=== PATIENT | female | born 1990 | race Caucasian/White ===

== ENCOUNTER 2024-09-12 17:11 | Emergency (ER) | payer BC ==
--- NOTE | 2024-09-12 17:58 | ED ---
Fall HPI - General Chief Complaint: Fall Stated Complaint: left arm injury, fall Time Seen by Provider: 09/12/24 17:55 Source: patient, RN notes reviewed Mode of arrival: ambulatory - History of Present Illness Initial Comments: 34-year-old female presents emergency department for complaint of a fall. States that she was walking outside carrying her son when she slipped on mud falling onto her left arm. She denies hitting her head or loss conscious at the time of the fall. Is complaining of pain to the left elbow and forearm. Denies paresthesias or loss of range of motion. denies taking medication since the time of the fall. - Related Data Allergies Allergy/AdvReac Type Severity Reaction Status Date / Time aspirin Allergy Rash/Hives Verified 09/12/24 17:16 clindamycin Allergy Rash/Hives Verified 09/12/24 17:16 Penicillins Allergy Rash/Hives Verified 09/12/24 17:16 Sulfa (Sulfonamide AdvReac Rash/Hives Verified 09/12/24 17:16 Antibiotics) Review of Systems ROS Statement: Those systems with pertinent positive or pertinent negative responses have been documented in the HPI. ROS Other: All systems not noted in ROS Statement are negative. Past Medical History Past Medical History: Asthma, GERD/Reflux Past Surgical History: Section, Cholecystectomy Past Psychological History: No Psychological Hx Reported Smoking Status: Never smoker Past Alcohol Use History: None Reported Past Drug Use History: None Reported General Exam Limitations: no limitations General appearance: alert, in no apparent distress ENT exam: Present: normal exam, mucous membranes moist Respiratory exam: Present: normal lung sounds bilaterally. Absent: respiratory distress, wheezes, rales, rhonchi, stridor Cardiovascular Exam: Present: regular rate, normal rhythm, normal heart sounds. Absent: systolic murmur, diastolic murmur, rubs, gallop, clicks GI/Abdominal exam: Present: soft, normal bowel sounds. Absent: distended, tenderness, guarding, rebound, rigid Left Elbow exam: Present: tenderness. Absent: swelling, ecchymosis, deformity Forearm Wrist exam: Present: full ROM, tenderness. Absent: swelling, ecchymosis, deformity Hand Wrist exam: Present: normal inspection Neuro motor exam: Present: wrist extension intact, thumb opposition intact Vascular: Present: normal capillary refill, radial pulse (2+). Absent: vascular compromise Back exam: Present: normal inspection Skin exam: Present: warm, dry, intact, normal color. Absent: rash Course Vital Signs 09/12/24 09/12/24 17:13 18:56 Temperature 98.5 F 98.2 F Pulse Rate 74 70 Respiratory 20 18 Rate Blood Pressure 103/68 102/60 O2 Sat by Pulse 99 99 Oximetry Medical Decision Making - Medical Decision Making Was pt. sent in by a medical professional or institution (, [facility], [facility], urgent care, hospital, or penitentiary...) When possible be specific @ -No Did you speak to anyone other than the patient for history (EMS, parent, family, police, friend...)? What history was obtained from this source @ -No Did you review nursing and triage notes (agree or disagree)? Why? @ -I reviewed and agree with nursing and triage notes Were old charts reviewed (outside hosp., previous admission, EMS record, old EKG, old radiological studies, urgent care reports/EKG's, penitentiary records)? Report findings @ -No old charts were reviewed Differential Diagnosis (chest pain, altered mental status, abdominal pain women, abdominal pain men, vaginal bleeding, weakness, fever, dyspnea, syncope, headache, dizziness, GI bleed, back pain, seizure, CVA, palpatations, mental health, musculoskeletal)? @ -Differential Musculoskeletal Muscular strain, contusion, ligament sprain, fracture, arthritis, septic arthritis, bursitis, cellulitis, muscle spasm, nerve compression, DVT, arterial occlusion, herpes zoster, electrolyte abnormality, tumor.... This is not meant to be in all inclusive list EKG interpreted by me (3pts min.). @ -none X-rays interpreted by me (1pt min.). @ -X-ray of the left wrist, forearm, elbow no evidence of acute fracture CT interpreted by me (1pt min.). @ -None done U/S interpreted by me (1pt. min.). @ -None done What testing was considered but not performed or refused? (CT, X-rays, U/S, labs)? Why? @ -None What meds were considered but not given or refused? Why? @ -None Did you discuss the management of the patient with other professionals (professionals i.e. , [facility], [facility], lab, RT, psych nurse, social work professor, wireless communications engineer, teacher, fire information officer, upper caser)? Give summary @ -No Was smoking cessation discussed for >3mins.? @ -No Was critical care preformed (if so, how long)? @ -No Were there social determinants of health that impacted care today? How? (Homelessness, low income, unemployed, alcoholism, drug addiction, transportation, low edu. Level, literacy, decrease access to med. care, snf, rehab)? @ -No Was there de-escalation of care discussed even if they declined (Discuss DNR or withdrawal of care, Hospice)? DNR status @ -No What co-morbidities impacted this encounter? (DM, HTN, Smoking, COPD, CAD, Cancer, CVA, ARF, Chemo, Hep., AIDS, mental health diagnosis, sleep apnea, morbid obesity)? @ -None Was patient admitted / discharged? Hospital course, mention meds given and route, prescriptions, significant lab abnormalities, going to OR and other pertinent info. @ -Discharge. 34 year old female presenting to the emergency department after a fall. Complaining of pain to the left arm no evidence of obvious deformity and is neurovascularly intact. she is provided with dose of Toradol. X-ray imaging is unremarkable. Supportive treatment discussed at bedside. Case discussed with Dr. alvarez Undiagnosed new problem with uncertain prognosis? @ -No Drug Therapy requiring intensive monitoring for toxicity (Heparin, Nitro, Insulin, Cardizem)? @ -No Were any procedures done? @ -No Diagnosis/symptom? @ -left arm pain after fall Acute, or Chronic, or Acute on Chronic? @ -acute Uncomplicated (without systemic symptoms) or Complicated (systemic symptoms)? @ -uncomplicated Side effects of treatment? @ -No Exacerbation, Progression, or Severe Exacerbation? @ -No Poses a threat to life or bodily function? How? (Chest pain, [place], [place], pneumonia, PE, COPD, DKA, ARF, appy, cholecystitis, CVA, Diverticulitis, Homicidal, Suicidal, threat to staff... and all critical care pts) @ -No Disposition Clinical Impression: Fall, Elbow pain Disposition: HOME SELF-CARE Condition: Good Instructions (If sedation given, give patient instructions): Elbow Sprain (ED) Additional Instructions: Please return to the Emergency Department if symptoms worsen or any other concerns. Is patient prescribed a controlled substance at d/c from ED?: No Referrals: Alex,Alessio, MD [Primary Care Provider] - 1-2 days Time of Disposition: 18:20
--- NOTE | 2024-09-12 18:07 | XR ---
EXAMINATION TYPE: XR wrist complete LT DATE OF EXAM: 09/12/2024 5:49 PM COMPARISON: None. CLINICAL INDICATION: Female, 34 years old with history of Injury, pain TECHNIQUE: XR wrist complete LT XX views were obtained. FINDINGS: There is no acute fracture/dislocation evident. The joint spaces appear within normal limi ts. The overlying soft tissue appears unremarkable. IMPRESSION: No acute fracture or dislocation seen. [facility], , 09/12/2024 6:05 PM
--- NOTE | 2024-09-12 18:08 | XR ---
EXAMINATION TYPE: XR forearm LT DATE OF EXAM: 09/12/2024 5:49 PM COMPARISON: None. CLINICAL INDICATION: Female, 34 years old with history of Injury, pain TECHNIQUE: XR forearm LT XX views were obtained. FINDINGS: There is no acute fracture/dislocation evident. The joint spaces appear within normal limits. The ov erlying soft tissue appears unremarkable. IMPRESSION: No acute fracture or dislocation. [facility], , 09/12/2024 6:05 PM
--- NOTE | 2024-09-12 18:09 | XR ---
EXAMINATION TYPE: XR elbow complete LT DATE OF EXAM: 09/12/2024 5:49 PM COMPARISON: None. CLINICAL INDICATION: Female, 34 years old with history of Injury, TECHNIQUE: XR elbow complete LT XX views were obtained. FINDINGS: There is no acute fracture/dislocation evident of the elbow. No abnormal fat pad signs are seen. Th e overlying soft tissue appears unremarkable. IMPRESSION: There is no acute fracture or dislocation of the elbow. ICD 10 NO FRACTURE, INITIAL EVALUATION [facility], , 09/12/2024 6:07 PM
[2024-09-12] MEDS: KETOROLAC 15 MG/ML 1 ML VIAL IM STA (18:39)
[2024-09-12 18:58] VITALS: BP 102/60; PULSE 70; RESP 18; TEMP 98.2
== END 2024-09-12 18:59 | disposition home or self-care (01) ==
LOC: EC 17:11
DX: M25.522 Pain in left elbow (principal); M79.632 Pain in left forearm; W01.0XXA Fall on same level from slipping, tripping and stumbling without subsequent striking against object, initial encounter
CPT/HCPCS: 73080; 73090; 73110; 99283; 96372; J1885